=== PATIENT | female | born 1945 | race Caucasian/White ===

== ENCOUNTER 2016-09-09 05:15 | Inpatient (IN) | payer OTHER ==
[~2016-09-09] VITALS: Ht 167.6 cm; Wt 99.8 kg
[~2016-09-09 05:15] MED LIST: GLU500 PO; LEVO150T8 PO; LISI30TA36 PO; POLY17PO4 PO
[2016-09-09] MEDS ORDERED: INSU100V9 SUBCUT (06:55)
[2016-09-09] MEDS ORDERED: INSU100V26 SUBCUT (06:55)
[2016-09-09] MEDS ORDERED: CEFAZOLIN 2 GM IVPB PREMIX 50 ML IV ONE (07:01)
[2016-09-09] MEDS ORDERED: KETOROLAC TROMETHAMINE 30 MG VIAL IVP ONE (07:01)
[2016-09-09] MEDS ORDERED: VANCOMYCIN HCL 1000 MG/VIAL IV ONE (07:01)
[2016-09-09] MEDS ORDERED: TRANEXAMIC ACID 1,000 MG/10 ML VIAL IV ONE (07:01)
[2016-09-09] MEDS ORDERED: LIDOCAINE 1% 10 MG/ML, 20 ML MDV INJ ONE (07:01)
[2016-09-09] MEDS ORDERED: SEVOFLURANE 15 MIN GAS INH ONE (07:01)
[2016-09-09] MEDS ORDERED: ROPIVACAINE HCL/PF 5 MG/ML 0.5% 30 ML VIAL INJ ONE (07:01)
[2016-09-09] MEDS ORDERED: NS 100 ML BAG IV ONE (07:01)
[2016-09-09] MEDS ORDERED: PROPOFOL 200MG/ 20ML VIAL (DIPRIVAN) IV ONE (07:01)
[2016-09-09] MEDS ORDERED: MIDAZOLAM HCL 5 MG/5 ML VIAL IVP ONE (07:01)
[2016-09-09] MEDS ORDERED: LR 1,000 ML IV.SOLN IV ONE (07:01)
[2016-09-09] MEDS ORDERED: ONDANSETRON HCL 4 MG/2 ML VIAL IVP ONE (07:01)
[2016-09-09] MEDS ORDERED: MEPERIDINE HCL/PF 100 MG/ML AMP IM ONE (07:01)
[2016-09-09] MEDS ORDERED: fentaNYL CITRATE/PF 100 MCG/2 ML AMP IVP ONE (07:01)
[2016-09-09] MEDS ORDERED: KETOROLAC TROMETHAMINE 30 MG VIAL ONE (07:07)
[2016-09-09] MEDS ORDERED: POLYMYXIN 500,000/BACIT.10,000 UNITS in NS IRR 1 L IR ONE (07:07)
[2016-09-09] MEDS ORDERED: D5/0.45 NS 1,000 ML IV ONE (07:18)
[2016-09-09] MEDS ORDERED: ACETAMINOPHEN 325 MG TABLET PO PRN (07:30)
[2016-09-09] MEDS ORDERED: BISACODYL 10 MG/SUPPOSITORY RC PRN (07:30)
[2016-09-09] MEDS ORDERED: MORPHINE SULFATE 10 MG/ML VIAL IM PRN (07:30)
[2016-09-09] MEDS ORDERED: LR 1,000 ML IV SCH (07:39)
[2016-09-09] MEDS ORDERED: HYDROmorphone 1 MG INJ. 1 MG/ML AMPUL IVP PRN ×2 (07:45)
[2016-09-09] MEDS ORDERED: NALBUPHINE HCL 10 MG/ML AMP IVP PRN (07:45)
[2016-09-09] MEDS ORDERED: MEPERIDINE HCL/PF 25 MG/ML DISP.SYRIN IVP PRN ×2 (07:45)
[2016-09-09] MEDS ORDERED: DIPHENHYDRAMINE INJ 50 MG/ML VIAL IVP PRN (07:45)
[2016-09-09] MEDS ORDERED: ONDANSETRON HCL 4 MG/2 ML VIAL IVP PRN ×2 (07:45)
[2016-09-09] MEDS ORDERED: HYDROmorphone 2 MG/ML VIAL IVP PRN (07:45)
[2016-09-09] MEDS ORDERED: ROPIVACAINE 0.2% 100 ML ONE (09:35)
[2016-09-09] MEDS ORDERED: HYDROmorphone 1 MG INJ. 1 MG/ML AMPUL ONE ×2 (09:42→09:56)
[2016-09-09] MEDS: HYDROmorphone 2 MG/ML VIAL IVP PRN ×2 (09:47→09:59)
[2016-09-09 11:35] VITALS: BP_SYST 124
[2016-09-09] MEDS: CEFAZOLIN 1 GM IVPB PREMIX 50 ML IV SCH ×2 (11:55→18:15)
[2016-09-09 12:23] VITALS: BP_SYST 124
[2016-09-09] MEDS ORDERED: HYDROMORPHONE PCA 10 mg/50 mL IV PRN (12:30)
[2016-09-09] MEDS ORDERED: NALOXONE HCL 0.4 MG/ML AMP (NARCAN) IVP PRN (12:30)
[2016-09-09 16:15] VITALS: BP_SYST 138
[2016-09-09 16:34] VITALS: BP_SYST 138
[2016-09-09] MEDS: RIVAROXABAN 10 MG TABLET PO SCH (17:19)
[2016-09-09] MEDS ORDERED: DEXTROSE 50% JECT 50 ML DISP.SYRIN IVP PRN (17:30)
[2016-09-09] MEDS: metFORMIN HCL 500 MG TABLET PO SCH (17:50)
[2016-09-09] MEDS: INSULIN REGULAR, HUMAN 100 UNITS/ML, 10 ML VIAL (novoLIN R) SUBCUT PRN (17:52)
[2016-09-09] MEDS: ROPIVACAINE 0.2% 100 ML INJ SCH (17:53)
[2016-09-09 20:00] VITALS: BP_SYST 127
[2016-09-09] MEDS: LISINOPRIL 10 MG TABLET (PRINIVIL) PO SCH (20:38)
[2016-09-10] VITALS: BP_SYST 123
[2016-09-10] MEDS: INSULIN REGULAR, HUMAN 100 UNITS/ML, 10 ML VIAL (novoLIN R) SUBCUT PRN ×4 (00:10→17:24)
[2016-09-10] MEDS: ROPIVACAINE 0.2% 100 ML INJ SCH ×3 (02:33→18:42)
[2016-09-10 04:00] VITALS: BP_SYST 134
[2016-09-10] MEDS: LEVOTHYROXINE SODIUM 0.15 MG TABLET PO SCH (06:00)
[2016-09-10 06:48] LABS: BASOPHILS % (AUTO) 0.2 % (0.0-2.0); EOSINOPHILS % (AUTO) 0.3 % (0.0-4.0); HEMATOCRIT 32.7 % (36-48); HEMOGLOBIN 11.3 g/dL (12.0-16.0); LYMPHOCYTES # (AUTO) 1.7 K/uL (1.0-5.5); LYMPHOCYTES % (AUTO) 15.5 % (20.5-51.5); MEAN CORPUSCULAR HEMOGLOBIN 31 pg (27-31); MEAN CORPUSCULAR HGB CONC 35 % (32-36); MEAN CORPUSCULAR VOLUME 90 fL (79.0-98.0); MONOCYTES % (AUTO) 9.2 % (1.7-9.3); NEUTROPHILS # (AUTO) 8.6 K/uL (1.8-7.7); NEUTROPHILS % (AUTO) 74.8 % (40.0-70.0); PLATELET COUNT (AUTO) 163 K/uL (130-430); RED BLOOD CELL COUNT(AUTO) 3.63 MIL/uL (4.2-6.2); RED CELL DISTRIBUTION WIDTH 13.3 % (9.0-15.0); WHITE BLOOD COUNT (AUTO) 11.3 K/uL (4.8-10.8)
[2016-09-10 07:15] LABS: ALANINE AMINOTRANSFERASE 35 U/L (12-78); ALBUMIN 2.9 g/dL (3.4-4.8); ANION GAP 3 (5-15); ASPARTATE AMINOTRANSFERASE 19 U/L (10-37); CALCIUM 8.5 mg/dL (8.4-11.0); CHLORIDE 105 mmol/L (98-107); GLUCOSE 170 mg/dL (70-99); POTASSIUM 4.1 mmol/L (3.5-5.1); SODIUM SERUM 136 mmol/L (136-145); TOTAL BILIRUBIN 0.4 mg/dL (0.0-1.0); TOTAL PROTEIN, SERUM 6.5 g/dL (6.4-8.3); UREA NITROGEN, BLOOD 28 mg/dL (8-21)
[2016-09-10 08:00] VITALS: BP_SYST 128
[2016-09-10] MEDS: POLYETHYLENE GLYCOL 3350, 17 GM/ POWD.PACK PO SCH (08:55)
[2016-09-10] MEDS: HYDROcodone/ACETAMIN 7.5-325 MG TAB PO PRN ×3 (08:57→20:56)
[2016-09-10] MEDS: metFORMIN HCL 500 MG TABLET PO SCH ×2 (09:00→17:21)
[2016-09-10] MEDS: LISINOPRIL 10 MG TABLET (PRINIVIL) PO SCH ×2 (09:00→20:26)
[2016-09-10 12:06] VITALS: BP_SYST 131
[2016-09-10 16:08] VITALS: BP_SYST 150
[2016-09-10] MEDS: RIVAROXABAN 10 MG TABLET PO SCH ×2 (17:25→17:32)
[2016-09-10 20:15] VITALS: BP_SYST 135
[2016-09-11] MEDS: INSULIN REGULAR, HUMAN 100 UNITS/ML, 10 ML VIAL (novoLIN R) SUBCUT PRN ×4 (00:19→17:33)
[2016-09-11 00:23] VITALS: BP_SYST 157
[2016-09-11] MEDS: ROPIVACAINE 0.2% 100 ML INJ SCH ×3 (02:29→19:21)
[2016-09-11 04:53] VITALS: BP_SYST 141
[2016-09-11] MEDS: HYDROcodone/ACETAMIN 7.5-325 MG TAB PO PRN ×3 (05:15→17:28)
[2016-09-11] MEDS: LEVOTHYROXINE SODIUM 0.15 MG TABLET PO SCH (06:10)
[2016-09-11] MEDS ORDERED: METOPROLOL TARTRATE 5 MG/5 ML VIAL IVP ONE (07:01)
[2016-09-11 08:00] VITALS: BP_SYST 125
[2016-09-11] MEDS: metFORMIN HCL 500 MG TABLET PO SCH ×2 (09:18→17:27)
[2016-09-11] MEDS: LISINOPRIL 10 MG TABLET (PRINIVIL) PO SCH (09:19)
[2016-09-11] MEDS: POLYETHYLENE GLYCOL 3350, 17 GM/ POWD.PACK PO SCH (09:19)
[2016-09-11 12:32] VITALS: BP_SYST 129
[2016-09-11 16:07] VITALS: BP_SYST 132
[2016-09-11 16:36] VITALS: BP_SYST 130
[2016-09-11] MEDS: RIVAROXABAN 10 MG TABLET PO SCH (17:28)
== END 2016-09-11 19:30 | DRG 470 ==
LOC: SMU 05:15 → STU 12:07
PROVIDERS: ADMIT Orthopaedic Surgery; ATTEND Orthopaedic Surgery
PROC: 0SRD0J9 Replacement of Left Knee Joint with Synthetic Substitute, Cemented, Open Approach (ICD-10-PCS; principal; 2016-09-09 07:30)
DX: M17.0 Bilateral primary osteoarthritis of knee (principal); E11.9 Type 2 diabetes mellitus without complications; I10 Essential (primary) hypertension; Z96.652 Presence of left artificial knee joint; Z83.3 Family history of diabetes mellitus; Z90.710 Acquired absence of both cervix and uterus
CPT/HCPCS: 36415; 80053; 82948; 82962; 85025; 87081; 88305; 88311; 94010; 94760; 97110-GP; 97116-GP; 97530-GP; C1713; C1776; J0690; J1170; J1815; J1885; J2001; J2175; J2250; J2405; J2704; J2795; J3010; J3370; J3490; J7120

== ENCOUNTER 2019-08-21 19:52 | Emergency (ER) | payer OTHER ==
[~2019-08-21] VITALS: Ht 167.6 cm; Wt 101.2 kg
[~2019-08-21 19:52] MED LIST changes: +INSU100V26 SUBCUT; +INSU100V9 SUBCUT
[2019-08-21 20:12] VITALS: BP_SYST 178
--- NOTE | 2019-08-21 20:19 | NUR ---
Patient to ER bed 02 to gown for evaluation. Side rails up.
--- NOTE | 2019-08-21 20:20 | NUR ---
Pt brought to ED by family. Pt awake, alert, oriented x4. Pt states that she had sudden onset of R eye pain yesterday, went to bed and had continued eye pain when she woke up. Pt states that she now is having vision problems with blurred vision and "crossed vision". Pt states that she went to urgent care and they sent her here for additional labs and CT for possible CVA or Blood Clot. Pt also states he has headache. Pt denies chest pain, nausea, vomiting, diarrhea, shortness of breath, denies any other medical complaint at this time. vss
--- NOTE | 2019-08-21 20:29 | NUR ---
ER at bedside examining patient.
[2019-08-21] MEDS ORDERED: hydrALAZINE HCL 20 MG/ML VIAL IVP ONE ×2 (20:45→21:15)
[2019-08-21 21:03] LABS: BASOPHILS % (AUTO) 0.5 % (0.0-2.0); EOSINOPHILS # (AUTO) 0.2 K/uL (0.0-0.4); EOSINOPHILS % (AUTO) 2.6 % (0.0-4.0); HEMOGLOBIN 13.5 g/dL (12.0-16.0); LYMPHOCYTES # (AUTO) 1.3 K/uL (1.0-5.5); LYMPHOCYTES % (AUTO) 21.2 % (20.5-51.5); MEAN CORPUSCULAR HEMOGLOBIN 31 pg (27-31); MEAN CORPUSCULAR HGB CONC 34 % (32-36); MEAN CORPUSCULAR VOLUME 91 fL (79.0-98.0); MONOCYTES # (AUTO) 0.3 K/uL (0.0-1.0); MONOCYTES % (AUTO) 5.1 % (1.7-9.3); NEUTROPHILS # (AUTO) 4.3 K/uL (1.8-7.7); NEUTROPHILS % (AUTO) 70.6 % (40.0-70.0); PLATELET COUNT (AUTO) 165 K/uL (130-430); RED BLOOD CELL COUNT(AUTO) 4.41 MIL/uL (4.2-6.2); RED CELL DISTRIBUTION WIDTH 14.1 % (9.0-15.0); WHITE BLOOD COUNT (AUTO) 6.2 K/uL (4.8-10.8)
[2019-08-21 21:09] LABS: ANION GAP 7 (5-15); CALCIUM 9.1 mg/dL (8.4-11.0); CHLORIDE 103 mmol/L (98-107); CREATININE 1.63 mg/dL (0.55-1.30); GLUCOSE 311 mg/dL (70-99); SODIUM SERUM 137 mmol/L (136-145); UREA NITROGEN, BLOOD 24 mg/dL (8-21)
[2019-08-21 21:10] LABS: BILIRUBIN,URINE NEGATIVE (NEGATIVE); CLARITY/URINE CLEAR (CLEAR); COLOR,URINE YELLOW (YELLOW); GLUCOSE,URINE 3+ (NEGATIVE); KETONES,URINE NEGATIVE (NEGATIVE); LEUKOCYTE ESTERASE ,URINE NEGATIVE (NEGATIVE); NITRITE, URINE NEGATIVE (NEGATIVE); PROTEIN URINE NEGATIVE (NEGATIVE); UROBILINOGEN,URINE 0.2 (0.2-1.0)
[2019-08-21] MEDS ORDERED: MORPHINE 2 MG/ML INJ. SYRINGE IVP ONE (21:15)
[2019-08-21 21:18] LABS: ALANINE AMINOTRANSFERASE 36 U/L (12-78); ALBUMIN 3.6 g/dL (3.4-4.8); ASPARTATE AMINOTRANSFERASE 19 U/L (10-37); TOTAL BILIRUBIN 0.6 mg/dL (0.0-1.0)
[2019-08-21 21:22] LABS: BLOOD, URINE TRACE (NEGATIVE)
[2019-08-21 21:25] LABS: BACTERIA,URINE FEW /HPF (None Seen); MUCUS,URINE None Seen /LPF (None Seen); RBC,URINE NONE SEEN /HPF (0-3); WBC,URINE 0-3 /HPF (0-3)
--- NOTE | 2019-08-21 22:00 | NUR ---
Pt assisted to restroom
--- NOTE | 2019-08-21 23:00 | NUR ---
Pt resting in ED bed, Asked for water, assisted with water and to use restroom
[2019-08-22] MEDS ORDERED: hydrALAZINE HCL 20 MG/ML VIAL IVP ONE
[2019-08-22] MEDS ORDERED: MORPHINE 4 MG/ML INJ. SYRINGE IVP ONE
--- NOTE | 2019-08-22 | NUR ---
Pt assisted to restroom
[2019-08-22 01:40] VITALS: BP_SYST 179
--- NOTE | 2019-08-22 01:40 | NUR ---
Patient to be transferred to [facility]. Is being transferred due to higher level of care. Receiving facility has accepting physician and available space. ER physician has signed transfer form. Patient or responsible green party has agreed to transfer and signed form. Patient belongings inventoried and will be sent with patient. Copy of nursing notes, lab reports, EKG, Physicians Orders and X-rays to be sent with patient. Report called to rajendra at receiving facility. Receiving physician is roger. ambulance service onscene for transfer.
== END 2019-08-22 01:40 | disposition short-term general hospital (02) ==
LOC: SED 19:52
DX: H53.8 Other visual disturbances (principal); H57.11 Ocular pain, right eye; N28.9 Disorder of kidney and ureter, unspecified; I10 Essential (primary) hypertension; R79.1 Abnormal coagulation profile; E78.00 Pure hypercholesterolemia, unspecified; E11.9 Type 2 diabetes mellitus without complications; Z79.4 Long term (current) use of insulin; Z79.899 Other long term (current) drug therapy; Z85.3 Personal history of malignant neoplasm of breast; Z90.710 Acquired absence of both cervix and uterus
CPT/HCPCS: 36415; 70450; 70480; 80053; 81000; 84484; 85025; 85379; 93005; 96374; 96375; 96376; 99285; J0360 ×2; J2270 ×2